=== PATIENT | male | born 1980 | race Native Hawaiian/Other Pacific Islander ===

== ENCOUNTER 2017-05-05 16:48 | Emergency (ER) | payer OTHER ==
--- NOTE | ~2017-05-05 | CR169 ---
[facility] A Service of [facility] & [facility] RADIOLOGY TEXT RESULTS PATIENT: EVELIN DONOVAN LOCATION: SED : 78 UNIT #: [id number] AGE: [address]: CHERI HOLLOWAY SEX: M ORDER DR: [id number] [address] [id number] MR#: [id number] Acc #: [id number] NAME: EVELIN DONOVAN : 1980 SEX: M STUDY DATE/TIME: 05/05/2017 17:56 UNIT: SED ROOM: STUDY DESCRIPTION: CR Knee 2 Views Lt Attending Physician: Cheri Holloway Aprn Ordering Physician: Ronda Nair M.D. Primary Care Physician: No Primary Care Physician MEDICAL IMAGING REPORT This report is preliminary unless electronic signature is present. EXAM Left knee, 2 views, 05/05/2017 HISTORY Pain and left knee status post fall this morning. FINDINGS 2 views of the left knee demonstrate no fracture. There is a bipartite patella. The bones are normally mineralized. There is no joint effusion. IMPRESSION Negative left knee Dictated by... Jean Cohen M.D. THIS IS AN ELECTRONICALLY VERIFIED REPORT Jean Cohen M.D. at 05/06/2017 2:26 PM KRT/roby TD: 05/05/2017 20:50 JOB #: [id number] MEDICAL IMAGING REPORT Page 1 of 1
[2017-05-05] MEDS ORDERED: NO MEDICATIONS (17:11)
== END 2017-05-05 19:39 | disposition home or self-care (01) ==
LOC: SED 16:48
DX: S80.02XA Contusion of left knee, initial encounter (principal); F17.210 Nicotine dependence, cigarettes, uncomplicated; W22.8XXA Striking against or struck by other objects, initial encounter; Y92.009 Unspecified place in unspecified non-institutional (private) residence as the place of occurrence of the external cause
CPT/HCPCS: 73560; 99283